=== PATIENT | female | born 1980 | race Caucasian/White ===

== ENCOUNTER 2023-07-16 19:53 | Emergency (ER) | payer BC, SELFPAY ==
[2023-07-16 19:57] VITALS: BP 153/94; PULSE 88; RESP 19; TEMP 36.6; O2SAT 100; BMI 29.0
--- NOTE | 2023-07-16 20:00 | XRR_ITS ---
PROCEDURE INFORMATION: Exam: XR Chest Exam date and time: 07/16/2023 8:39 PM Age: 42 years old Clinical indication: Chest wall pain; Additional info: Chest pain TECHNIQUE: Imaging protocol: Radiologic exam of the chest. Views: 1 view. COMPARISON: No relevant prior studies available. FINDINGS: Lungs: Unremarkable. No consolidation. Pleural spaces: Unremarkable. No pleural effusion. No pneumothorax. Heart/Mediastinum: Unremarkable. No cardiomegaly. Bones/joints: Unremarkable. XR/XR chest 1V portable [id number] IMPRESSION: No acute findings.
--- NOTE | 2023-07-16 20:00 | ECG_ITS ---
[facility] Test Date: 2023-07-16 Pat Name: Kristin Schneider Department: Room: Gender: Female Creative Lead: : 1980 Requested By: Sukhwinder Taylor Order Number: [id number] Tyrel MD: Ivanna Nichols M.D. Measurements Intervals [place] Rate: 89 P: 70 MI: 157 QRS: 34 QRSD: 96 T: 42 QT: 351 QTc: 428 Interpretive Statements SINUS RHYTHM LOW QRS VOLTAGE IN PRECORDIAL LEADS [QRS DEFLECTION < 1.0 mV IN CHEST LEADS] No previous ECG available for comparison Electronically Signed On 07-17-2023 21:30:55 CDT by Ivanna Nichols M.D. [id number]
[2023-07-16 20:23] LABS: Basophils % 0.3 %; Eosinophils # 0.1 10^3/uL (0.0-0.8); Eosinophils % 1.2 %; Hematocrit 39.9 % (36-47); Lymphocytes # 2.2 10^3/uL (0.8-4.8); Lymphocytes % 21.7 %; Mean Corpuscular HGB Conc 33.3 g/dL (30-55); Mean Corpuscular Hemoglobin 29.6 pg (27-33); Mean Corpuscular Volume 88.9 fl (85-98); Mean Platelet Volume 8.3 fL (7.4-10.4); Monocytes # 0.6 10^3/uL (0.2-0.9); Monocytes % 5.9 %; Neutrophils # 6.98 10^3/uL (1.8-7.7); Neutrophils % 70.6 %; Nucleated Red Blood Cells % 0 %; Platelet Count 348 10^3/cmm (157-399); Red Blood Count 4.49 10^6/uL (3.85-5.65); Red Cell Distribution Width 12.9 % (12.1-15.1); White Blood Count 9.89 10^3/uL (3.29-11.43)
[2023-07-16 20:31] VITALS: BP 128/93; PULSE 78; O2SAT 97
[2023-07-16 20:46] LABS: Troponin(5th) Baseline < 6 ng/L (0-10)
[2023-07-16 20:48] LABS: Alanine Aminotransferase 22 U/L (0-33); Albumin Level 4.7 g/dL (3.5-5.2); Alkaline Phosphatase 82 U/L (35-105); Anion Gap 14.8 (5-19); Aspartate Amino Transferase 15 U/L (0-32); Blood Urea Nitrogen 7 mg/dL (6-20); Calcium 9.3 mg/dL (8.5-10.5); Carbon Dioxide 25 mmol/L (22-29); Chloride 102 mmol/L (98-107); Creatinine Clr Calc Pharmacy 134.2662; Globulin 2.3 g/dL (1.3-4.6); Glomerular Filtration Rate 110.7 mL/min (90-130); Glucose 83 mg/dL (65-115); Osmolality Calculated 283 mOsm/kg (285-295); Potassium 3.8 mmol/L (3.5-5.1); Sodium 138 mmol/L (136-145); Total Bilirubin 0.5 mg/dL (0.15-1.2)
--- NOTE | 2023-07-16 20:53 | W.ED.CHESTPA ---
HPI - Chest Pain General: Chief Complaint: Chest Pain Stated Complaint: cp Time Seen by Provider: 07/16/23 20:25 History of Present Illness: Patient presents to the ER with complaints of chest pain that radiates down her left arm. This comes on intermittently but no no rhyme or reason. This been going on for about several days. Patient also states she has had nausea since eating hibachi in [place] about 4 days ago. Patient has had diarrhea this multiple times since then and is even had black stool once today. Patient says she is just not felt good overall for several days since she ate the bocce. Patient does not have any cardiac history. Patient states her blood pressure has been high the last day or 2. Review of Systems General: Reports: 10 or more systems reviewed and unremarkable except in HPI and below Physical Exam Const: COMMON NORMALS: no acute distress, average body habitus, patient oriented x3, no limitations, healthy appearing, alert and well nourished HENMT: COMMON NORMALS: normocephalic, atraumatic, hearing grossly normal bilaterally, external ears normal, Normal external nose present, moist oral mucous membranes and oropharynx normal HEAD & SCALP: normocephalic and atraumatic NOSE: Normal external nose present EXTERNAL EAR: Yes external ears normal Eye: COMMON NORMALS: Equal, round and reactive pupils present, EOMs intact bilaterally, conjunctivae normal and no scleral icterus CONJUNCTIVA: Yes conjunctivae normal PUPIL: Yes Equal, round and reactive pupils present Neck/C-Spine: COMMON NORMALS: full ROM, no lymphadenopathy, supple, no meningeal signs, no JVD and Thyroid normal THYROID: Thyroid normal Lymph: LYMPHATIC: no lymphadenopathy noted Chest: COMMONS NORMALS: normal inspection of the chest and normal palpation of entire chest wall Resp: COMMON NORMALS: normal respiratory effort, No retractions, No use of accessory muscles and clear to auscultation bilaterally AUSCULTATION: clear to auscultation bilaterally Cardio: COMMON NORMALS: no JVD, regular rate, regular rhythm, S1 normal heart sound present, S2 normal heart sound present, No gallops present (Cardio), No clicks present (Cardio), No murmurs present (Cardio) and No rub (Cardio) RATE: regular rate RHYTHM: regular rhythm HEART SOUNDS: S1 normal heart sound present and S2 normal heart sound present GI: COMMON NORMALS: Normal to inspection, nondistended, normoactive bowel sounds present, Soft to palpation, non-tender, No hepatosplenomegaly present and no masses PALPATION: Yes Soft to palpation and Yes No hepatosplenomegaly present Neuro: COMMON NORMALS: patient oriented x3 SENSORIUM/ORIENTATION: Yes alert MENINGEAL SIGNS: Yes no meningeal signs Course Vital Signs: Vital signs: Vital Signs Temperature 98 F 07/16/23 19:57 Pulse Rate 84 07/16/23 21:23 Respiratory Rate 19 H 07/16/23 21:23 Blood Pressure 140/79 07/16/23 21:23 Pulse Oximetry 98 07/16/23 21:23 Oxygen Delivery Me thod Room Air 07/16/23 21:23 MDM - Chest Pain Medical Decision Making Patient presents to the ER with complaints of chest pain with nausea and black stool. Patient was worked up in a standard chest pain fashion as well as lipase PT/INR all of which was negative. Patient was given a list of family docs to follow-up with. Patient be discharged home. Differential Diagnosis Unlikely acute massive pulmonary embolism, acute respiratory failure, acute myocardial infarction, cardiac arrest or sudden cardiac Medical Records I reviewed the patient's medical records. Lab Data I reviewed the patient's lab results. 07/16/23 20:16 07/16/23 20:16 Radiology Impressions Chest X-Ray 07/16/23 20:00 IMPRESSION: No acute findings. Laboratory Results WBC 9.89 10^3/uL (3.29-11.43) 07/16/23 20:16 RBC 4.49 10^6/uL (3.85-5.65) 07/16/23 20:16 Hgb 13.30 g/dL (11.27-16.99) 07/16/23 20:16 Hct 39.9 % (36-47) 07/16/23 20:16 MCV 88.9 fl (85-98) 07/16/23 20:16 MCH 29.6 pg (27-33) 07/16/23 20:16 MCHC 33.3 g/dL (30-55) 07/16/23 20:16 RDW 12.9 % (12.1-15.1) 07/16/23 20:16 Plt Count 348 10^3/cmm (157-399) 07/16/23 20:16 MPV 8.3 fL (7.4-10.4) 07/16/23 20:16 Neut % (Auto) 70.6 % 07/16/23 20:16 Lymph % (Auto) 21.7 % 07/16/23 20:16 [place] % (Auto) 5.9 % 07/16/23 20:16 Eos % (Auto) 1.2 % 07/16/23 20:16 Baso % (Auto) 0.3 % 07/16/23 20:16 Neut # (Auto) 6.98 10^3/uL (1.8-7.7) 07/16/23 20:16 Lymph # (Auto) 2.2 10^3/uL (0.8-4.8) 07/16/23 20:16 [place] # (Auto) 0.6 10^3/uL (0.2-0.9) 07/16/23 20:16 Eos # (Auto) 0.1 10^3/uL (0.0-0.8) 07/16/23 20:16 Baso # (Auto) 0.0 10^3/uL (0.0-0.1) 07/16/23 20:16 Nucleated RBC % (auto) 0 % 07/16/23 20:16 Nucleated RBCs # 0.0 /100WBC 07/16/23 20:16 PT 13.30 SECONDS (12.1-14.9) 07/16/23 20:16 INR 0.98 (0.8-1.2) 07/16/23 20:16 Sodium 138 mmol/L (136-145) 07/16/23 20:16 Potassium 3.8 mmol/L (3.5-5.1) 07/16/23 20:16 Chloride 102 mmol/L (98-107) 07/16/23 20:16 Carbon Dioxide 25 mmol/L (22-29) 07/16/23 20:16 Anion Gap 14.8 (5-19) 07/16/23 20:16 BUN 7 mg/dL (6-20) 07/16/23 20:16 Creatinine 0.6 mg/dL (0.5-0.9) 07/16/23 20:16 GFR Calculation 110.7 mL/min (90-130) 07/16/23 20:16 Glucose 83 mg/dL (65-115) 07/16/23 20:16 Calculated Osmolality 283 mOsm/kg (285-295) L 07/16/23 20:16 Calcium 9.3 mg/dL (8.5-10.5) 07/16/23 20:16 Magnesium 2.0 mg/dL (1.7-2.3) 07/16/23 20:16 Total Bilirubin 0.5 mg/dL (0.15-1.2) 07/16/23 20:16 AST 15 U/L (0-32) 07/16/23 20:16 ALT 22 U/L (0-33) 07/16/23 20:16 Alkaline Phosphatase 82 U/L (35-105) 07/16/23 20:16 Troponin T Baseline < 6 ng/L (0-10) 07/16/23 20:16 Troponin T 120 Minute 6.0 ng/L (0-10) 07/16/23 22:15 Delta Troponin T 0.35776 ABS# (0-10) 07/16/23 22:15 Total Protein 7.0 g/dL (6.6-8.7) 07/16/23 20:16 Albumin 4.7 g/dL (3.5-5.2) 07/16/23 20:16 Globulin 2.3 g/dL (1.3-4.6) 07/16/23 20:16 Lipase 15 U/L (13-60) 07/16/23 20:16 Urine Color Straw (Yellow) 07/16/23 22:17 Urine Appearance Clear (CLEAR) 07/16/23 22:17 Urine pH 6.5 (5-7) 07/16/23 22:17 Ur Specific [place] 1.005 (1.005-1.030) 07/16/23 22:17 Urine Protein Neg (Negative) 07/16/23 22:17 Urine Glucose (UA) Norm (Normal) 07/16/23 22:17 Urine Ketones Negative (Negative) 07/16/23 22:17 Urine Blood Neg (Negative) 07/16/23 22:17 Urine Nitrate Negative (Negative) 07/16/23 22:17 Urine Bilirubin Neg (Negative) 07/16/23 22:17 Urine Urobilinogen Norm mg/dL (Negative) 07/16/23 22:17 Ur Leukocyte Esterase Negative (Negative) 07/16/23 22:17 All radiology interpretation(s) finalized by discharge EKG Data EKG 1: I personally reviewed and interpreted this EKG as follows: EKG interpretation date: 07/16/23 EKG interpretation time: 19:59 Prior EKG tracings: not available for review Interpretation: EKG shows ventricular rate 89 bpm, MO interval 157, QRS duration 96, QTc 398, sinus rhythm, no ST-T wave changes EKG 2: I personally reviewed and interpreted this EKG as follows: EKG interpretation date: 07/16/23 EKG interpretation time: 19:59 Prior EKG tracings: available for review Interpretation: EKG shows ventricular rate 89 bpm, MO interval 157, QRS duration 96, QTc of 398, sinus rhythm, no ST-T wave changes Discharge Plan Discharge Patient Disposition: Home Clinical Impression: Atypical chest pain Condition: Stable Discharge Orders: Discharge ED (Routine); Ordered 07/16/23 Ordered By: Sukhwinder Taylor Referrals: Bri Oates NP [Primary Care Provider] - 1 week Patient Instructions: Chest Pain - Noncardiac Activity Restrictions/Additional Instructions: Please keep an eye on your blood pressure. You may want to keep a log and take it to your family practice at your next visit. Please observe your stools and see if they turn back to normal color. Please follow-up with your family practice doc in about a week. A list of family practice docs in the area has been given to you. Coding Level of Care Code ED Manufacturing Engineering Intern for Eloisa Robles
[2023-07-16 21:23] VITALS: BP 140/79; PULSE 84; RESP 19; O2SAT 98
--- NOTE | 2023-07-16 22:00 | ECG_ITS ---
[facility] Test Date: 2023-07-16 Pat Name: Kristin Schneider Department: Room: Gender: Female Mandrel Maker: : 1980 Requested By: Sukhwinder Taylor Order Number: [id number] Tyrel MD: Ivanna Nichols M.D. Measurements Intervals [place] Rate: 69 P: 65 ME: 159 QRS: 46 QRSD: 92 T: 50 QT: 371 QTc: 398 Interpretive Statements SINUS RHYTHM WITH SINUS ARRHYTHMIA Compared to ECG 07/16/2023 19:59:25 No significant changes Electronically Signed On 07-17-2023 21:37:25 CDT by Ivanna Nichols M.D. [id number]
[2023-07-16 22:23] LABS: Add Urine Microscopic? NO; Charge for UA Resulting for Rev
[2023-07-16 22:23] LABS: INR 0.98 (0.8-1.2)
[2023-07-16 22:27] LABS: Lipase 15 U/L (13-60)
[2023-07-16 22:30] LABS: Bilirubin Urine Neg (Negative); Blood Urine Neg (Negative); Glucose Urine UA Norm (Normal); Ketones Urine Negative (Negative); Leukocyte Esterase Urine Negative (Negative); Nitrate Urine Negative (Negative); Protein Urine Neg (Negative); Specific Gravity, Urine 1.005 (1.005-1.030); Urine Appearance Clear (CLEAR); Urine Color Straw (Yellow); Urobilinogen Urine Norm (Negative); pH Urine 6.5 (5-7)
[2023-07-16 22:45] LABS: Troponin 5 2HR Delta 0.00001 ABS# (0-10)
[2023-07-17 00:29] VITALS: BP 142/89
== END 2023-07-17 00:03 | disposition home or self-care (01) ==
PROVIDERS: Emergency Provider Emergency Medicine; PCP Nurse Practitioner Family
DX: R07.89 Other chest pain (principal)
CPT/HCPCS: 36415; 71045; 80053; 81003; 83690; 83735; 84484; 85025; 85610; 93005; 99285